=== PATIENT | male | born 1945 | race Caucasian/White ===

== ENCOUNTER 2018-02-11 11:36 | Day surgery (SDC) | payer OTHER ==
[2018-02-11] MEDS ORDERED: LIDOCAINE 2% MDV (20MG/ML) 20ML VIAL IV ONE (11:37)
[2018-02-11] MEDS ORDERED: PROPOFOL 10 MG/ML VIAL IV ONE (11:37)
--- NOTE | 2018-02-11 15:21 | Operative Note ---
DATE OF SURGERY: 02/11/2018 OPERATION: COLONOSCOPY with cold forceps and cold snare polypectomies. PREOPERATIVE DIAGNOSIS: Personal history of polyps. POSTOPERATIVE DIAGNOSES: 1. Normal-appearing ileocolonic anastomosis. 2. Cecal polyp. 3. Ascending colon polyp. 4. Sigmoid polyp. 5. Rectal polyp. 6. Left-sided diverticulosis. PROCEDURE: After informed consent was obtained from the patient, he was placed in the left lateral decubitus position in the endoscopy suite, sedated and monitored by the department of anesthesia. Digital rectal exam was unremarkable. A well-lubricated [id number] colonoscope was inserted into the rectum and advanced to the ileocolonic anastomosis. There appeared to be a neocecum which revealed a diminutive polyp removed with a cold forceps. The proximal ascending colon revealed a 1.3 cm sessile polyp removed in piecemeal fashion with a cold snare with minimal bleeding noted. The polyp was retrieved without difficulty. The remainder of the ascending colon, transverse colon, and descending colon were unremarkable other than left-sided diverticular changes which were somewhat severe in the descending and sigmoid colon. In the sigmoid colon there was a 4 mm sessile polyp removed with a cold snare. Forward views of the rectum were unremarkable and a J-turn view did reveal a polyp which was approximately 3-4 mm in diameter and removed with a cold snare. The endoscope was straightened, the rectal ampulla deflated, and the endoscope was removed. RECOMMENDATIONS: I would suggest the patient resume his medications and diet. He will require repeat exam most likely in 3 years but a final determination based on tissue histology. As always, thank you for allowing me to participate in the healthcare of your patients. CC: MARIUSZ OLSEN D.O. SANDOVAL
== END 2018-02-11 13:40 | disposition home or self-care (01) ==
LOC: HOP 11:36
PROVIDERS: ATTEND Internal Medicine Gastroenterology
DX: Z86.010 Personal history of colon polyps (principal); D12.0 Benign neoplasm of cecum; D12.2 Benign neoplasm of ascending colon; D12.5 Benign neoplasm of sigmoid colon; K62.1 Rectal polyp; K57.30 Diverticulosis of large intestine without perforation or abscess without bleeding; I10 Essential (primary) hypertension; E78.00 Pure hypercholesterolemia, unspecified; I25.10 Atherosclerotic heart disease of native coronary artery without angina pectoris